=== PATIENT | male | born 1950 | race Native Hawaiian/Other Pacific Islander ===

== ENCOUNTER 2022-04-19 16:28 | Emergency (ER) | payer OTHER ==
[~2022-04-19] VITALS: Ht 165.1 cm; Wt 99.8 kg
[2022-04-19 16:28] VITALS: BP 179/98; TEMP 99
[2022-04-19 16:53] LABS: PLATELET COUNT 231 K/uL (142-355)
[2022-04-19] MEDS ORDERED: JARDIANCE25 MG PO (20:39)
[2022-04-19] MEDS ORDERED: LOSA50TA PO (20:40)
[2022-04-19] MEDS ORDERED: MELATONIN5 M2 PO (20:41)
[2022-04-19] MEDS ORDERED: PAROXETINE30 MG PO (20:42)
[2022-04-19] MEDS ORDERED: MOBIC15 MG PO (20:42)
[2022-04-19] MEDS ORDERED: SEROQUEL300 MG PO (20:43)
[2022-04-19] MEDS ORDERED: THIA100T8 PO (20:44)
[2022-04-19] MEDS ORDERED: METF100038 PO (20:46)
[2022-04-19] MEDS ORDERED: PROVERA10 MG PO (20:47)
[2022-04-19] MEDS ORDERED: NEURONTIN 100M100 MG PO (20:48)
[2022-04-19] MEDS ORDERED: NOVOLIN R100 UNIT/1 SC (20:50)
[2022-04-19] MEDS ORDERED: TRAMADOL HYDROC50 MG PO (20:51)
[2022-04-19] MEDS ORDERED: TYLENOL325 MG PO (20:52)
[2022-04-19] MEDS ORDERED: TIZA4TAB5 PO (20:54)
== END 2022-04-19 18:06 | disposition still patient (30) ==
LOC: ED 16:28
PROVIDERS: Emergency Medicine Emergency Medical Services
DX: R46.89 Other symptoms and signs involving appearance and behavior (principal); R45.1 Restlessness and agitation; N39.0 Urinary tract infection, site not specified; Z11.52 Encounter for screening for COVID-19; Z04.6 Encounter for general psychiatric examination, requested by authority
CPT/HCPCS: 80053; 81000; 85027; 87086; 87088; 87635; 93005; 99283; U0003